=== PATIENT | female | born 1995 | race Caucasian/White ===

== ENCOUNTER 2017-01-25 13:18 | Emergency (ER) | payer MEDICAID ==
[~2017-01-25] VITALS: Ht 160 cm; Wt 114.0 kg
[2017-01-25 13:22] VITALS: Ht 160 cm; Wt 114.0 kg
--- NOTE | 2017-01-25 13:38 | NUR ---
DR DR KELLEY AT BEDSIDE.
[2017-01-25] MEDS ORDERED: ORPHENADRINE 60mg/2ml INJECTION IM ONE (13:45)
[2017-01-25] MEDS ORDERED: KETOROLAC 60mg/2ml INJECTION IM ONE (13:45)
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
--- NOTE | 2017-01-25 14:06 | NUR ---
XRY PT TO XRY VIA [facility].
[2017-01-25] MEDS ORDERED: LISI-621 PO (14:15)
[2017-01-25] MEDS ORDERED: INSU3INS5 SQ (14:15)
[2017-01-25] MEDS ORDERED: METF10002 PO (14:15)
[2017-01-25] MEDS ORDERED: EMPA10TA PO (14:15)
[2017-01-25] MEDS ORDERED: LIRA0.6P2 SQ (14:15)
[2017-01-25] MEDS ORDERED: PRAV20TA4 PO (14:15)
[2017-01-25] MEDS ORDERED: MICO45PO TOP (14:16)
--- NOTE | 2017-01-25 14:22 | NUR ---
XRY PT RETURNED.
--- NOTE | 2017-01-25 15:10 | NUR ---
DR DR KELLEY AT BEDSIDE.
[2017-01-25 15:27] VITALS: BP 134/62; PULSE 96; RESP 16; TEMP 98.2; O2SAT 96
--- NOTE | 2017-01-25 15:27 | NUR ---
DISMISS PT ABMULATORY TO LOBBY WITH USE OF CANE. PT ACCOMPANIED BY MOTHER.
--- NOTE | 2017-01-25 17:32 | DI ---
Indication: ITS.REASON: Fall; pain PROCEDURE: KNEE LEFT 3 VIEWS: Encounter: Initial Comparison: None Findings: There is no acute fracture, dislocation or malalignment identified. Impression: No acute osseous abnormality. .
== END 2017-01-25 15:27 | disposition home or self-care (01) ==
LOC: ED 13:18
DX: S50.811A Abrasion of right forearm, initial encounter (principal); S80.212A Abrasion, left knee, initial encounter; S80.812A Abrasion, left lower leg, initial encounter; V18.0XXA Pedal cycle driver injured in noncollision transport accident in nontraffic accident, initial encounter; Y93.55 Activity, bike riding; Y92.009 Unspecified place in unspecified non-institutional (private) residence as the place of occurrence of the external cause; Y99.8 Other external cause status
CPT/HCPCS: 73562; 96372; 99283; J1885; J2360